=== PATIENT | male | born 1940 | race Caucasian/White ===

== ENCOUNTER 2017-04-02 14:52 | Emergency (ER) | payer MEDICARE, BC ==
[2017-04-02] MEDS: HYDROcodone/APAP 5/325MG 1 TAB TABLET PO (15:54)
== END 2017-04-02 16:29 | disposition home or self-care (01) ==
LOC: ER 14:52
DX: M25.551 Pain in right hip (principal); Z98.890 Other specified postprocedural states
CPT/HCPCS: 73502; 99284